=== PATIENT | male | born 1970 | race Caucasian/White ===

== ENCOUNTER 2018-05-20 19:22 | Emergency (ER) | payer OTHER ==
[~2018-05-20] VITALS: Ht 172.7 cm; Wt 77.1 kg
--- NOTE | 2018-05-20 19:53 | NUR ---
RIGHT HAND CLEANSED WITH NORMAL SALINE, DR. AVELAR AT BEDSIDE FOR MSE.
[2018-05-20] MEDS ORDERED: LIDOCAINE HCL 2% 20 ML VIAL TP ONE (20:15)
[2018-05-20] MEDS ORDERED: HYDROCODONE/APAP 5-325MG TABLET PO ONE (20:30)
[2018-05-20] MEDS ORDERED: HYDROCODONE/APAP 5-325MG TABLET ONE (20:31)
[2018-05-20 20:34] VITALS: BP 137/91
--- NOTE | 2018-05-20 20:34 | NUR ---
Patient discharged to home in stable conditon. Written and verbal after care instructions given. Patient verbalizes understanding of instructions. PATIENT LEFT WITH STABLE GAIT.
== END 2018-05-20 20:35 | disposition home or self-care (01) ==
LOC: ER 19:24 → EDBD 19:24 → ER 20:35
DX: S61.411A Laceration without foreign body of right hand, initial encounter (principal); F17.200 Nicotine dependence, unspecified, uncomplicated; Z88.0 Allergy status to penicillin; Z88.1 Allergy status to other antibiotic agents; W25.XXXA Contact with sharp glass, initial encounter; Y93.89 Activity, other specified; Y92.89 Other specified places as the place of occurrence of the external cause; Y99.8 Other external cause status
CPT/HCPCS: A4663

== ENCOUNTER 2018-05-25 18:08 | Inpatient (IN) | payer OTHER ==
[~2018-05-25] VITALS: Ht 172.7 cm; Wt 78.0 kg
--- NOTE | 2018-05-25 18:41 | NUR ---
PT IS IN ROOM #1A. DR AVELAR EVALUATED THE PT.
[2018-05-25] MEDS ORDERED: VANCOMYCIN IV 1,000 MG in IV DEXTROSE 5% 250 ML IV ONE (18:45)
[2018-05-25] MEDS ORDERED: IV NORMAL SALINE 1000 ML BAG IV ONE (18:45)
[2018-05-25] MEDS ORDERED: HYDROMORPHONE 1 MG/1 ML DISP.SYRIN IV ONE (19:00)
[2018-05-25] MEDS ORDERED: ONDANSETRON IV *ER 4 MG/2 ML VIAL IV ONE (19:00)
[2018-05-25] MEDS ORDERED: HYDROMORPHONE 1 MG/1 ML DISP.SYRIN ONE (19:03)
[2018-05-25] MEDS ORDERED: ONDANSETRON 4 MG/2 ML VIAL ONE (19:04)
[2018-05-25] MEDS ORDERED: VANCOMYCIN IV 200 ML ONE (19:04)
[2018-05-25 19:52] LABS: BASOPHILS # (AUTO) 0.1 K/uL (0.0-8.0); BASOPHILS % (AUTO) 0.7 % (0.0-2.0); EOSINOPHILS % (AUTO) 0.2 % (0.0-7.0); HEMATOCRIT 35.8 % (36.7-47.1); HEMOGLOBIN 11.9 g/dL (12.5-16.3); LYMPHOCYTES # (AUTO) 1.7 K/uL (20.0-40.0); LYMPHOCYTES % (AUTO) 9.4 % (20.5-51.5); MEAN CORPUSCULAR HGB CONC 33 g/dL (32.5-36.3); MONOCYTES # (AUTO) 1.3 K/uL (2.0-10.0); MONOCYTES % (AUTO) 7.5 % (0.0-11.0); NEUTROPHILS # (AUTO) 14.6 K/uL (1.8-8.9); NEUTROPHILS % (AUTO) 82.2 % (38.5-71.5); PLATELET COUNT (AUTO) 281 K/uL (152-348); RED BLOOD CELL COUNT(AUTO) 3.85 MIL/uL (4.06-5.63); WHITE BLOOD COUNT (AUTO) 17.8 K/uL (3.6-10.2)
--- NOTE | 2018-05-25 20:00 | NUR ---
Dr. Dudley on panel call with Dr. Gregory Cerna. Pt accepted to [facility], diagnosis R Hand Cellulitis.
[2018-05-25 20:07] LABS: BILIRUBIN,DIRECT 0.1 mg/dL (0.0-0.2); BILIRUBIN,TOTAL 0.6 mg/dL (0.2-1.0); CREATININE 0.8 mg/dL (0.6-1.3); POTASSIUM 3.1 mmol/L (3.5-5.1); TOTAL PROTEIN, SERUM 6.1 g/dL (6.4-8.2)
--- NOTE | 2018-05-25 20:26 | NUR ---
Report given to Darby ARAYA Medsurg.
--- NOTE | 2018-05-25 20:45 | NUR ---
NSG: pt received a/o x 4 fr er with dx of right hand cellulitis. v/s stable, c/o right hand and right thigh pain. also has a wound on right thigh, per pt, it was a blister that popped. right hand red and swollen, with stitches. md aware of the admission. awaiting for orders.
[2018-05-25] MEDS ORDERED: ZOLPIDEM 5 MG TABLET PO PRN (21:30)
[2018-05-25] MEDS ORDERED: MAGNESIUM HYDROXIDE 30 ML LIQUID UDC PO PRN (21:30)
[2018-05-25] MEDS ORDERED: Z GUARD REMEDY PASTE 57 GM TUBE TOP PRN (21:30)
[2018-05-25] MEDS ORDERED: MORPHINE SULFATE 2 MG/1 ML DISP.SYRIN IV PRN (21:30)
[2018-05-25] MEDS ORDERED: POTASSIUM CHLORIDE 20 MEQ TAB.PRT.SR PO ONE (21:45)
[2018-05-25] MEDS: IV NS 1000 ML 1,000 ML IV PRN (22:12)
[2018-05-25] MEDS ORDERED: AZITHROMYCIN 500 MG VIAL IV ONE (22:16)
[2018-05-25 22:46] VITALS: BP 113/68
[2018-05-25] MEDS: ONDANSETRON 4 MG/2 ML VIAL IV PRN (23:10)
[2018-05-25] MEDS: AZITHROMYCIN IV 500 MG in IV DEXTROSE 5% 250 ML IV SCH (23:10)
[2018-05-26 04:17] VITALS: BP 115/62
--- NOTE | 2018-05-26 05:10 | NUR ---
nsg: pt pulled out iv line. refused heplock to be started, aggressive. will try again later.
--- NOTE | 2018-05-26 05:39 | NUR ---
nsg: attempted to restart heplock but pt refused again, aggressive. will endorse to am nurse.
[2018-05-26 06:44] LABS: BASOPHILS % (AUTO) 0.3 % (0.0-2.0); EOSINOPHILS # (AUTO) 0.1 K/uL (0.0-0.7); EOSINOPHILS % (AUTO) 0.9 % (0.0-7.0); HEMATOCRIT 36.9 % (36.7-47.1); HEMOGLOBIN 12.4 g/dL (12.5-16.3); LYMPHOCYTES # (AUTO) 2.6 K/uL (20.0-40.0); LYMPHOCYTES % (AUTO) 18.3 % (20.5-51.5); MEAN CORPUSCULAR HEMOGLOBIN 31.3 uug (23.8-33.4); MEAN CORPUSCULAR HGB CONC 34 g/dL (32.5-36.3); MEAN CORPUSCULAR VOLUME 93.4 fL (73.0-96.2); MONOCYTES # (AUTO) 1.2 K/uL (2.0-10.0); MONOCYTES % (AUTO) 8.7 % (0.0-11.0); NEUTROPHILS # (AUTO) 10.2 K/uL (1.8-8.9); NEUTROPHILS % (AUTO) 71.8 % (38.5-71.5); PLATELET COUNT (AUTO) 288 K/uL (152-348); RED BLOOD CELL COUNT(AUTO) 3.95 MIL/uL (4.06-5.63); WHITE BLOOD COUNT (AUTO) 14.2 K/uL (3.6-10.2)
[2018-05-26 07:08] LABS: MAGNESIUM 1.6 mg/dL (1.8-2.4); POTASSIUM 3.9 mmol/L (3.5-5.1)
--- NOTE | 2018-05-26 08:54 | NUR ---
CLINICAL PHARMACY NOTE; VANCOMYCIN PHARMACY TO DOSE Subjective: To continue vancomycin in this 47 y/o male for cellulitis Objective: weight 78 kg height 172.7cm BUN 17 Scr 1 Wbc 14.2 temp 98 Assessment/Plan Patient received vanco 1gm IVPB x1 in ED on 05/25 at 1900. Will start vanco 1250mg IVPB q12h for predicted vanco trough level of 16.8 mcg/ at steady state. 1st dose today at 0900. Will monitor renal function & adjust the dose if needed. Will order trough before 4th scheduled dose (not yet ordered). Will follow
[2018-05-26] MEDS: VANCOMYCIN IV 1,250 MG in IV DEXTROSE 5% 500 ML IV SCH ×2 (09:18→20:04)
[2018-05-26] MEDS: MORPHINE SULFATE 4 MG/1 ML DISP.SYRIN IV PRN ×3 (09:19→21:28)
--- NOTE | 2018-05-26 09:30 | NUR ---
Received patient awake, alert x4. IV pulled out. Not in any form of distress, with pain over right hand rated as 9/10. Sutures intact, dry no discharges noted over right hand. IV re-inserted over left wrist G22. Still with swelling over right arm, warm to touch.
[2018-05-26 11:37] VITALS: BP 166/55
[2018-05-26] MEDS: MAGNESIUM SULFATE/D5W 100 ML IV SCH ×2 (12:03→13:15)
--- NOTE | 2018-05-26 14:35 | NUR ---
Seen on rounding. Intact and patent IV NS infusing at 75 cc/hr over left wrist.
[2018-05-26 15:03] VITALS: BP 117/65
--- NOTE | 2018-05-26 15:27 | NUR ---
Contraband, containing cigarettes, production service manager, matches, glass tube and marijuana surrendered to security.
--- NOTE | 2018-05-26 17:00 | NUR ---
Contraband containing marijuana, cigarettes and lighters given back by security and stored in contraband locker.
[2018-05-26] MEDS: IV NS 1000 ML 1,000 ML IV PRN (19:00)
--- NOTE | 2018-05-26 19:25 | NUR ---
RECEIVED PT AWAKE, ALERT, AND ORIENTEDX4. PT SHOWS NO SIGNS OF ACUTE DISTRESS. PT IV INTACT. CALL LIGHT WITHIN REACH. BED ALARM ON. PT RIGHT HAND ELEVATED WITH PILLOW. SAFETY AND COMFORT PROVIDED. WILL CONTINUE TO MONITOR.
[2018-05-26 20:00] VITALS: BP 109/63
[2018-05-26] MEDS: CULTURELLE CAPSULE PO SCH (20:04)
[2018-05-26] MEDS: AZITHROMYCIN IV 500 MG in IV DEXTROSE 5% 250 ML IV SCH (23:34)
[2018-05-27] MEDS: MORPHINE SULFATE 4 MG/1 ML DISP.SYRIN IV PRN ×5 (01:43→20:35)
--- NOTE | 2018-05-27 06:02 | NUR ---
PT SLEPT THROUGHOUT THE SHIFT. PT SHOWS NO SIGNS OF DISTRESS. PT IV INTACT. PRESCRIBED MEDICATION GIVEN AND PT TOLERATED IT WELL. PT GIVEN MORPHINE 2127H AND 142H. PT TOLERATED IT WELL. SAFETY AND COMFORT PROVIDED. WILL ENDORSE ACCORDINGLY TO INCOMING NURSE FOR CONTINUITY OF CARE.
[2018-05-27 06:18] VITALS: BP 115/55
--- NOTE | 2018-05-27 06:36 | NUR ---
PT GIVEN 0628H MORPHINE FOR PAIN SCALE 9/10 FOR RIGHT HAND PAIN. PT STABLE. WILL ENDORSE TO DAYSHIFT NURSE FOR CONTINUITY OF CARE.
[2018-05-27 06:57] LABS: BASOPHILS # (AUTO) 0.1 K/uL (0.0-8.0); BASOPHILS % (AUTO) 0.5 % (0.0-2.0); EOSINOPHILS # (AUTO) 0.2 K/uL (0.0-0.7); HEMATOCRIT 36.3 % (36.7-47.1); HEMOGLOBIN 12.4 g/dL (12.5-16.3); LYMPHOCYTES # (AUTO) 2.8 K/uL (20.0-40.0); LYMPHOCYTES % (AUTO) 26.4 % (20.5-51.5); MEAN CORPUSCULAR HEMOGLOBIN 31.2 uug (23.8-33.4); MEAN CORPUSCULAR HGB CONC 34 g/dL (32.5-36.3); MEAN CORPUSCULAR VOLUME 91.6 fL (73.0-96.2); MONOCYTES % (AUTO) 9.5 % (0.0-11.0); NEUTROPHILS # (AUTO) 6.7 K/uL (1.8-8.9); NEUTROPHILS % (AUTO) 61.6 % (38.5-71.5); PLATELET COUNT (AUTO) 291 K/uL (152-348); RED BLOOD CELL COUNT(AUTO) 3.96 MIL/uL (4.06-5.63); WHITE BLOOD COUNT (AUTO) 10.8 K/uL (3.6-10.2)
[2018-05-27 07:05] LABS: CREATININE 0.9 mg/dL (0.6-1.3); MAGNESIUM 2.2 mg/dL (1.8-2.4); POTASSIUM 4.1 mmol/L (3.5-5.1)
--- NOTE | 2018-05-27 09:35 | NUR ---
Called pharmacy to clarify Vanco since there is no order for vanco trough. They said they will clarify and call me back.
[2018-05-27] MEDS: CULTURELLE CAPSULE PO SCH ×2 (09:45→20:34)
[2018-05-27] MEDS: VANCOMYCIN IV 1,250 MG in IV DEXTROSE 5% 500 ML IV SCH ×2 (09:50→21:40)
[2018-05-27] MEDS: HYDROCODONE/APAP 5-325MG TABLET PO PRN ×2 (11:05→21:47)
[2018-05-27 11:27] VITALS: BP 114/72
--- NOTE | 2018-05-27 12:09 | NUR ---
CLINICAL PHARMACY NOTE; VANCOMYCIN PHARMACY TO DOSE Subjective: To continue vancomycin in this 47 y/o male for cellulitis Objective: weight 78 kg height 172.7cm BUN 18 Scr 0.9 Wbc 10.8 temp 97.8 Assessment/Plan Will continue same dose of vanco 1250mg IVPB q12h for today. 3rd dose due today at 0900. Will order trough before 4th scheduled dose (ordered for today at 2029- RN has been informed to hold 2100 dose if vanco trough level above 20 mcg/ml). Pharmacy will review the level in am & adjust the dose if needed. Will follow
[2018-05-27] MEDS: IV NS 1000 ML 1,000 ML IV PRN (13:34)
[2018-05-27] MEDS: NICOTINE 21 MG/24HR PATCH TD SCH ×2 (13:34→20:38)
--- NOTE | 2018-05-27 13:53 | NUR ---
Report given to MARSHAL Orozco. All questions answered
[2018-05-27 15:24] VITALS: BP 117/69
[2018-05-27] MEDS: ACETAMINOPHEN 325 MG TABLET PO PRN (17:32)
[2018-05-27 19:11] VITALS: BP 139/86
--- NOTE | 2018-05-27 19:20 | NUR ---
RECEIVED PATIENT LYING IN BED. IN NO ACUTE DISTRESS. IV LINE ON THE LEFT FOREARM, INTACT AND PATENT RUNNING NS 75ML/HR. NO COMPLAINTS OF DISCOMFORT OR SOB. SAFETY MEASURES INITIATED. BED IS LOW AND LOCKED, CALL LIGHT WITHIN REACH. WILL CONTINUE TO MONITOR.
[2018-05-27] MEDS ORDERED: NEOMY/BACITRAC/POLYMI OINT 28.35 GM TUBE TOP SCH (20:45)
--- NOTE | 2018-05-27 23:00 | NUR ---
pt had shower; nicotine patch reapplied; dressing to legs done.
[2018-05-28] MEDS: AZITHROMYCIN IV 500 MG in IV DEXTROSE 5% 250 ML IV SCH (00:08)
[2018-05-28] MEDS: ONDANSETRON 4 MG/2 ML VIAL IV PRN (00:50)
[2018-05-28] MEDS: MORPHINE SULFATE 4 MG/1 ML DISP.SYRIN IV PRN ×2 (00:50→06:05)
[2018-05-28 03:15] VITALS: BP 128/68
[2018-05-28] MEDS: HYDROCODONE/APAP 5-325MG TABLET PO PRN ×2 (05:19→11:48)
[2018-05-28] MEDS: IV NS 1000 ML 1,000 ML IV PRN (05:28)
--- NOTE | 2018-05-28 06:37 | NUR ---
PATIENT SLEPT WELL THROUGH THE NIGHT. HAD NO SIGNS OF ACUTE DISTRESS. NO COMPLAINTS OF SOB. HAD COMPLAINTS OF PAIN, GAVE NORCO 5-325MG AT 0519H WITH NOT MUCH EFFECT AND GAVE MORPHINE INJ 2MG AT 0605H WITH EFFECT. IV LINE ON THE LEFT FOREARM IS INTACT AND PATENT. SAFETY MEASURES PROVIDED. WILL ENDORSE CONTINUITY OF CARE TO NEXT SHIFT.
--- NOTE | 2018-05-28 07:30 | NUR ---
Pt is awake, A/O x4. Pt c/o pain in his right hand, and right leg wound, as well as headache. Morphine and [place] are not due yet. PRN Tylenol 650 mg PO was given. Dressing on right leg was changed. small amount of pink discharge was noted. will continue to monitor.
[2018-05-28] MEDS: ACETAMINOPHEN 325 MG TABLET PO PRN (08:09)
[2018-05-28] MEDS: CULTURELLE CAPSULE PO SCH (09:41)
[2018-05-28] MEDS: NICOTINE 21 MG/24HR PATCH TD SCH (09:41)
[2018-05-28] MEDS: VANCOMYCIN IV 1,250 MG in IV DEXTROSE 5% 500 ML IV SCH (09:43)
[2018-05-28 11:18] VITALS: BP 122/74
[2018-05-28] MEDS ORDERED: SULF1TAB48 PO (11:23)
[2018-05-28] MEDS ORDERED: MAG HYDROX/AL HYDROX/SIMETH 30 ML LIQUID UDC PO PRN (12:30)
--- NOTE | 2018-05-28 13:00 | NUR ---
Pt is being discharged home, self-care. Pt was given prescription medications for pain medications and antibiotics. Pt verbalized understanding of teaching including following up with the physician and keeping wound clean.
--- NOTE | 2018-05-28 13:50 | NUR ---
CLINICAL PHARMACY NOTE; VANCOMYCIN PHARMACY TO DOSE Subjective: To continue vancomycin in this 47 y/o male for cellulitis Objective: weight 78 kg height 172.7cm BUN 18 (05/27) Scr 0.9(05/27) Wbc 10.8(05/27) temp 98.1 Vancomycin trough last night at 2030:11.2 Assessment/Plan Since Vancomycin trough is subtherapeutic, will increase dose to 1250mg IV every 10 hrs(second dose today at 2000). Will draw trough by 4th dose(ordered for tomorrow at 1530) for expected trough around 15. Will check trough to adjust the dose if needed. Will monitor daily.
[2018-05-28] MEDS ORDERED: VANCOMYCIN IV 1,250 MG in IV DEXTROSE 5% 500 ML IV SCH (20:00)
== END 2018-05-28 13:45 | disposition home or self-care (01) | DRG 603 ==
LOC: ER 18:09 → MED 20:36
PROVIDERS: ADMIT Hospitalist; ATTEND Hospitalist
DX: L03.113 Cellulitis of right upper limb (principal); E44.1 Mild protein-calorie malnutrition; L03.011 Cellulitis of right finger; S61.411D Laceration without foreign body of right hand, subsequent encounter; W25.XXXD Contact with sharp glass, subsequent encounter; Z91.14 Patient's other noncompliance with medication regimen; F17.210 Nicotine dependence, cigarettes, uncomplicated; E83.42 Hypomagnesemia; Z87.892 Personal history of anaphylaxis; Z88.1 Allergy status to other antibiotic agents; Z88.0 Allergy status to penicillin; E87.6 Hypokalemia; Z91.19 Patient's noncompliance with other medical treatment and regimen; Z68.26 Body mass index [BMI] 26.0-26.9, adult
CPT/HCPCS: 36415; 73130; 83735; 84100; 85025; A4663; G0378; J0456; J1170; J2270; J2405; J3370; J3475; J7030; J7050; J7060